=== PATIENT | female | born 1955 | race Caucasian/White ===

== ENCOUNTER → 2016-03-25 | Outpatient (REF) | payer BC ==
[2016-03-25 11:55] LABS: ALBUMIN/GLOBULIN RATIO 1.05 (1.00-1.93); ALKALINE PHOSPHATASE 115 U/L (45-117); ALT/SGPT 30 U/L (12-78); ANION GAP 11 MEQ/L (8-16); AST/SGOT 21 U/L (15-37); BILIRUBIN,TOTAL 0.3 MG/DL (0.2-1.0); BLOOD UREA NITROGEN 13 MG/DL (7-18); CALCIUM LEVEL 9.1 MG/DL (8.5-10.1); CARBON DIOXIDE LEVEL 28 MEQ/L (21-32); CHLORIDE LEVEL 101 MEQ/L (98-107); CHOLESTEROL LEVEL 294 MG/DL (<200); CREATININE FOR GFR 0.71 MG/DL (0.55-1.02); GLOMERULAR FILTRATION RATE > 60.0 (>51); GLUCOSE, FASTING 86 MG/DL (70-105); POTASSIUM SERUM 4.5 MEQ/L (3.5-5.1); SODIUM LEVEL 140 MEQ/L (136-145); TOTAL PROTEIN 7.8 GM/DL (6.4-8.2); TRIGLYCERIDES LEVEL 129 MG/DL (<150)
== END ==
LOC: M SFHCCLAY 08:24
PROVIDERS: ATTEND Family Medicine
DX: E78.2 Mixed hyperlipidemia (principal); E55.9 Vitamin D deficiency, unspecified

== ENCOUNTER → 2016-07-13 | Outpatient (REF) | payer BC ==
[2016-07-13 12:44] LABS: BASO % 0.7 % (0.0-1.0); EOS # 0.2 K/mm3 (0.0-0.50); EOS % 3.7 % (0.0-3.0); LARGE UNSTAINED CELL # 0.1 K/mm3 (0.0-0.4); LARGE UNSTAINED CELL % 2.2 % (0.0-4.0); LYMPH # 1.7 K/mm3 (1.5-4.5); LYMPH % 30.2 % (24.0-44.0); MEAN CORPUSCULAR HEMOGLOBIN 31.4 pg (27.0-33.0); MEAN CORPUSCULAR HGB CONC 32.9 g/dl (32.0-36.5); MEAN CORPUSCULAR VOLUME 95.2 fl (80.0-96.0); MONO # 0.3 K/mm3 (0.0-0.8); MONO % 5.8 % (0.0-5.0); NEUTROPHILS % 57.4 % (36.0-66.0); PLATELET COUNT, AUTOMATED 307 k/mm3 (150-450); RED CELL DISTRIBUTION WIDTH 12.2 % (11.5-14.5); WHITE BLOOD COUNT 5.3 K/mm3 (4.0-10.0)
[2016-07-13 13:14] LABS: ALBUMIN 3.8 GM/DL (3.2-5.2); ALBUMIN/GLOBULIN RATIO 1.09 (1.00-1.93); ALKALINE PHOSPHATASE 106 U/L (45-117); ALT/SGPT 28 U/L (12-78); AMYLASE 72 U/L (25-115); ANION GAP 9 MEQ/L (8-16); AST/SGOT 21 U/L (15-37); BILIRUBIN,TOTAL 0.3 MG/DL (0.2-1.0); BLOOD UREA NITROGEN 10 MG/DL (7-18); CARBON DIOXIDE LEVEL 28 MEQ/L (21-32); CHLORIDE LEVEL 102 MEQ/L (98-107); CREATININE FOR GFR 0.63 MG/DL (0.55-1.02); GLOMERULAR FILTRATION RATE > 60.0 (>51); GLUCOSE, FASTING 90 MG/DL (70-105); POTASSIUM SERUM 4.5 MEQ/L (3.5-5.1); SODIUM LEVEL 139 MEQ/L (136-145); TOTAL PROTEIN 7.3 GM/DL (6.4-8.2)
== END ==
LOC: M SFHCCLAY 08:43
PROVIDERS: ATTEND Family Medicine
DX: R10.9 Unspecified abdominal pain (principal)

== ENCOUNTER → 2016-10-12 | Outpatient (CLI) | payer BC ==
--- NOTE | 2016-10-13 02:36 | REP ---
Clinical: Pain. Technique: Internal rotation, external rotation, and Y view of the right shoulder. Findings: Cortical irregularity and spurring at the acromioclavicular joint is appreciated. The glenohumeral joint appears intact and normal. Subacromial space is normal. No significant periarticular calcifications are appreciated. Surrounding soft tissues are unremarkable. Impression: Mild degenerative changes at the acromioclavicular joint suggested. Signed by Selvin Silva MD 10/13/2016 02:28 A
== END ==
LOC: M CLY 13:54
PROVIDERS: ATTEND Family Medicine
DX: M19.011 Primary osteoarthritis, right shoulder (principal); M25.511 Pain in right shoulder

== ENCOUNTER → 2017-03-24 | Outpatient (REF) | payer BC ==
[2017-03-24 12:05] LABS: BASO # 0.1 10^3/uL (0.0-0.2); BASO % 0.9 % (0.0-1.0); EOS # 0.1 10^3/uL (0.0-0.50); EOS % 1.7 % (0.0-3.0); HEMATOCRIT 40.1 % (36.0-47.0); HEMOGLOBIN 13.2 g/dl (12.0-16.0); IMMATURE GRANULOCYTE % 0.3 % (0-0); LYMPH # 1.4 10^3/uL (1.5-4.5); LYMPH % 20.1 % (24.0-44.0); MEAN CORPUSCULAR HEMOGLOBIN 31.3 pg (27.0-33.0); MEAN CORPUSCULAR HGB CONC 32.9 g/dl (32.0-36.5); MONO # 0.5 10^3/uL (0.0-0.8); MONO % 7.3 % (0.0-5.0); NEUTROPHILS # 4.9 10^3/uL (1.8-7.7); NEUTROPHILS % 69.7 % (36.0-66.0); PLATELET COUNT, AUTOMATED 309 10^3/uL (150-450); RED BLOOD COUNT 4.22 10^6/uL (4.00-5.40)
[2017-03-24 12:35] LABS: ALBUMIN 3.7 GM/DL (3.2-5.2); ALBUMIN/GLOBULIN RATIO 0.95 (1.00-1.93); ALKALINE PHOSPHATASE 112 U/L (45-117); ALT/SGPT 28 U/L (12-78); ANION GAP 5 MEQ/L (8-16); AST/SGOT 19 U/L (7-37); BILIRUBIN,TOTAL 0.5 MG/DL (0.2-1.0); BLOOD UREA NITROGEN 12 MG/DL (7-18); CALCIUM LEVEL 9.2 MG/DL (8.5-10.1); CARBON DIOXIDE LEVEL 31 MEQ/L (21-32); CHLORIDE LEVEL 101 MEQ/L (98-107); CHOLESTEROL LEVEL 272 MG/DL (<200); CHOLESTEROL RISK RATIO 3.726 (<5); CREATININE FOR GFR 0.67 MG/DL (0.55-1.02); GLOMERULAR FILTRATION RATE > 60.0 (>51); GLUCOSE, FASTING 90 MG/DL (70-105); HDL CHOLESTEROL 73 MG/DL (>40); LDL CHOLESTEROL 160.6 MG/DL (<100); NON-HDL-C 199 MG/DL; POTASSIUM SERUM 4.5 MEQ/L (3.5-5.1); SODIUM LEVEL 137 MEQ/L (136-145); TOTAL PROTEIN 7.6 GM/DL (6.4-8.2); TRIGLYCERIDES LEVEL 192 MG/DL (<150)
[2017-03-28 14:11] LABS: VITAMIN D 1,25 DIHYDROXY 55.8 pg/mL (19.9-79.3)
== END ==
LOC: M SFHCCLAY 08:21
DX: E78.2 Mixed hyperlipidemia (principal); E55.9 Vitamin D deficiency, unspecified; R10.32 Left lower quadrant pain
CPT/HCPCS: 80053

== ENCOUNTER → 2017-09-26 | Outpatient (REF) | payer BC ==
[2017-09-26 12:33] LABS: ALBUMIN 3.8 GM/DL (3.2-5.2); ALBUMIN/GLOBULIN RATIO 1.19 (1.00-1.93); ALKALINE PHOSPHATASE 106 U/L (45-117); ALT/SGPT 41 U/L (12-78); ANION GAP 7 MEQ/L (8-16); AST/SGOT 24 U/L (7-37); BILIRUBIN,TOTAL 0.3 MG/DL (0.2-1.0); BLOOD UREA NITROGEN 11 MG/DL (7-18); CALCIUM LEVEL 8.8 MG/DL (8.5-10.1); CARBON DIOXIDE LEVEL 30 MEQ/L (21-32); CHLORIDE LEVEL 105 MEQ/L (98-107); CHOLESTEROL LEVEL 182 MG/DL (<200); CHOLESTEROL RISK RATIO 2.888 (<5); CREATININE FOR GFR 0.73 MG/DL (0.55-1.30); GLOMERULAR FILTRATION RATE > 60.0 (>51); GLUCOSE, FASTING 89 MG/DL (70-100); HDL CHOLESTEROL 63 MG/DL (>40); LDL CHOLESTEROL 84.8 MG/DL (<100); NON-HDL-C 119 MG/DL; POTASSIUM SERUM 4.6 MEQ/L (3.5-5.1); SODIUM LEVEL 142 MEQ/L (136-145); TRIGLYCERIDES LEVEL 171 MG/DL (<150)
== END ==
LOC: M SFHCCLAY 07:21
DX: E78.2 Mixed hyperlipidemia (principal)
CPT/HCPCS: 80053

== ENCOUNTER → 2018-03-28 | Outpatient (REF) | payer OTHER ==
[2018-03-28 20:54] LABS: ALBUMIN 3.8 GM/DL (3.2-5.2); ALT/SGPT 37 U/L (12-78); BILIRUBIN,TOTAL 0.3 MG/DL (0.2-1.0); BLOOD UREA NITROGEN 13 MG/DL (7-18); CALCIUM LEVEL 9.2 MG/DL (8.8-10.2); CARBON DIOXIDE LEVEL 30 MEQ/L (21-32); CHLORIDE LEVEL 104 MEQ/L (98-107); CHOLESTEROL LEVEL 162 MG/DL (<200); CHOLESTEROL RISK RATIO 2.314 (<5); CREATININE FOR GFR 0.58 MG/DL (0.55-1.30); GLOMERULAR FILTRATION RATE > 60.0 (>45); GLUCOSE, FASTING 86 MG/DL (70-100); HDL CHOLESTEROL 70 MG/DL (>40); LDL CHOLESTEROL 70 MG/DL (<100); NON-HDL-C 92 MG/DL; POTASSIUM SERUM 4.5 MEQ/L (3.5-5.1); SODIUM LEVEL 139 MEQ/L (136-145); TOTAL PROTEIN 7.3 GM/DL (6.4-8.2); TRIGLYCERIDES LEVEL 108 MG/DL (<150)
== END ==
LOC: M SFHCCLAY 09:42
PROVIDERS: ATTEND Family Medicine
DX: E78.2 Mixed hyperlipidemia (principal)

== ENCOUNTER → 2018-03-28 | Outpatient (CLI) | payer OTHER ==
--- NOTE | 2018-03-29 03:48 | REP ---
Clinical: Right shoulder pain. Technique: Internal rotation, external rotation, and Y view of the right shoulder. Findings: Mild age-related degenerative changes include subtle cortical irregularity at the acromioclavicular joint. The glenohumeral joint is intact and normal. Subacromial space is normal. No periarticular calcifications. Impression: Mild age-related degenerative changes at the acromioclavicular joint.
== END ==
LOC: M CLY 10:08
PROVIDERS: ATTEND Family Medicine
DX: M19.011 Primary osteoarthritis, right shoulder (principal)

== ENCOUNTER → 2019-02-19 | Outpatient (CLI) | payer OTHER ==
[~2019-02-19] MED LIST: BIOT1000 PO; HM V4000 PO; ROSU10TA6 PO; [UNRECOGNIZED DRUG - CODE] PO
--- NOTE | 2019-02-19 15:04 | REP ---
Clinical: Cough. Technique: PA and lateral. Comparison: None. Findings: Minimal linear fibroatelectatic changes at the left base require correlation with auscultation. No further consolidation. No effusion. No pneumothorax. Mediastinum and cardiac silhouette normal. Skeletal structures intact. Impression: Minimal linear fibroatelectatic changes at the left base require correlation with auscultation. Electronically Signed by Selvin Silva MD 02/19/2019 02:56 P
== END ==
LOC: M CLY 14:32
PROVIDERS: ATTEND Family Medicine
DX: R91.8 Other nonspecific abnormal finding of lung field (principal)

== ENCOUNTER 2019-03-29 08:21 | Day surgery (SDC) | payer OTHER ==
[~2019-03-29] VITALS: Ht 157.5 cm; Wt 92.5 kg
[~2019-03-29 08:21] MED LIST changes: +LIDOCAINE 1% MDV 20ML VIAL SQ PRN; +LR 1,000 ML IV ONE; +ceFAZolin SOD 2 GM in IV 1 EA IV ONE
[2019-03-29] MEDS ORDERED: dexameTHASONE 10 MG/1 ML VIAL PRES.FREE (J1100) ONE (08:22)
[2019-03-29] MEDS ORDERED: LIDOCAINE 1% MDV 20ML VIAL ONE (08:22)
[2019-03-29] MEDS ORDERED: VITA250T4 PO (09:07)
[2019-03-29] MEDS ORDERED: ONDANSETRON 4MG/2ML VIAL (J2405) As Ordered ONE ×2 (09:33→15:55)
[2019-03-29] MEDS ORDERED: LIDOCAINE 2% INJ 100 MG/5 ML SDV (FOR ANES.) As Ordered ONE (09:33)
[2019-03-29] MEDS ORDERED: ROCURONIUM BROMIDE 50 MG/5 ML VIAL As Ordered ONE (09:33)
[2019-03-29] MEDS ORDERED: ACETAMINOPHEN 1000MG 100ML IV BTL (OFIRMEV) (J0131 PER 10MG) As Ordered ONE (09:33)
[2019-03-29] MEDS ORDERED: dexameTHASONE 4 MG/ML 1ML VIAL (J1100) As Ordered ONE (09:33)
[2019-03-29] MEDS ORDERED: propofoL 200 MG/20 ML VIAL As Ordered ONE (09:33)
[2019-03-29] MEDS ORDERED: KETOROLAC 60 MG/2 ML VIAL (J1885) As Ordered ONE (09:33)
[2019-03-29] MEDS ORDERED: fentaNYL 100 MCG/2 ML INJECTION (J3010) As Ordered ONE ×4 (09:34→15:55)
[2019-03-29] MEDS ORDERED: MIDAZOLAM INJ 2 MG/2 ML VIAL (J2250) As Ordered ONE ×2 (09:34→11:50)
[2019-03-29] MEDS ORDERED: SUGAMMADEX SODIUM 500 MG/5 ML VIAL (BRIDION) As Ordered ONE (13:33)
[2019-03-29] MEDS ORDERED: oxyCODONE 5MG TAB As Ordered ONE ×2 (15:37→15:55)
[2019-03-29] MEDS: oxyCODONE 5MG TAB PO PRN ×2 (15:40→16:10)
[2019-03-29] MEDS: fentaNYL 100 MCG/2 ML INJECTION (J3010) IV PRN ×4 (15:55→16:10)
[2019-03-29] MEDS ORDERED: ONDANSETRON 4MG/2ML VIAL (J2405) IV PRN (16:00)
[2019-03-29] MEDS ORDERED: LR 1,000 ML IV SCH (16:00)
--- NOTE | 2019-03-29 18:33 | REP ---
Left great toe series: Five views. History: Intraoperative imaging. Fluoroscopic spot films. 45 seconds of fluoroscopy time is reported. Findings: A sequence of five last image hold fluoroscopically obtained spot radiographs document operative arthrodesis of the first MTP joint. Electronically Signed by Jonny Quigley MD 03/29/2019 06:25 P
[2019-03-29 18:50] VITALS: BP 131/72
--- NOTE | 2019-03-30 11:21 | RO ---
DATE OF PROCEDURE: 03/29/2019 PREOPERATIVE DIAGNOSIS: Left hallux rigidus and hallux interphalangeus. POSTOPERATIVE DIAGNOSIS: Left hallux rigidus and hallux interphalangeus with small bunion deformity. PROCEDURE: 1. Left first metatarsal phalangeal joint fusion. 2. Calcaneal bone graft. 3. Use of the mini C-arm. SURGEON: Suma Rivas MD CUSTOMER SERVICE AGENT: TK Lopez ANESTHESIA: General endotracheal with popliteal nerve block. ESTIMATED BLOOD LOSS: 25 mL. COMPLICATIONS: None. CONDITION: Stable to recovery. IMPLANTS: Arthrex first MTP plate and QuickFix 3 mm screw. INDICATIONS: Atiya Phillips is a 63-year-old female who has had longstanding pain and deformity due to left hallux rigidus. She has failed conservative measures. The risks and benefits of the surgery were discussed with the patient in detail and include, but are not limited to, infection, damage to nerves and blood vessels, need for additional procedures. Informed consent was obtained in the office. PROCEDURE: The patient was met in the preoperative holding area where her left lower extremity was marked as the correct operative site. She underwent a nerve block by the anesthesia team. She was then taken to the operating room and placed in the supine position on the operating room table. Bony prominences were well padded. A well padded tourniquet was placed on the left upper thigh. She was prepped and draped in the normal sterile fashion. Antibiotics were given within 60 minutes prior to incision. An official time out was held where the correct patient, operative side and operative procedure were verified. Following this, the leg was exsanguinated and the tourniquet was inflated to 275 mmHg. An incision was made directly over the first MTP joint. The extensor hallucis longus (EHL) tendon was retracted laterally. The capsule was incised. 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 There was very little cartilage left, mainly in the plantar aspect on both sides of the joint. This was removed with a series of curettes. Copious irrigation was performed. I then drilled subchondral bone using a 0.062 K-wire on both sides of the joint. After the joint was prepared, my attention was then turned laterally. Using the small incision, laterally over the tuberosity, I then used a snap and freer to dissect down to the bone with taking care to avoid the sural nerve and peroneal tendons. I then used the 4.0 drill sleeve to extract calcaneal bone graft. Some of this was placed into the joint. I then pinned the joint in place in the appropriate amount of valgus and dorsiflexion. Radiographs were used to confirm on AP, lateral and oblique views position of the toe. It was found to be satisfactory. I then placed a 3.0 partially threaded Arthrex lag screw across the joint. This gave good compression. Next, I selected an Arthrex low profile first MTP plate. It was placed dorsally across the joint and the position of the plate was confirmed radiographically. I then secured the plate distally with locking screws and proximally with locking screws as well. I did attempt to place an eccentric screw, however was not getting bite so this was removed. X-rays were performed in AP, lateral and oblique view. Position of the toe and hardware placement were found to be satisfactory. There was also good compression across the joint. Following this, a bur was used to drill two small holes on either side of the plate. The remaining bone graft was placed here, which was in the region of the joint. Following this, the capsule was closed with #2-0 Vicryl. Copious irrigation was then performed. Subcutaneous tissue was closed using #3-0 Vicryl and skin was closed using #3-0 nylon. A well padded dressing was applied and the patient was extubated and transferred to the recovery room in stable condition. PLAN: Patient will be non-weightbearing in the left lower extremity. She will be on aspirin for deep vein thrombosis (DVT) prophylaxis. I will see her back in two weeks for suture removal and placement into a boot.
== END 2019-03-29 18:57 | disposition home or self-care (01) ==
LOC: M SDC 08:21
PROVIDERS: ATTEND Orthopaedic Surgery
DX: M20.22 Hallux rigidus, left foot (principal); E55.9 Vitamin D deficiency, unspecified; E78.5 Hyperlipidemia, unspecified; Z88.1 Allergy status to other antibiotic agents; Z79.899 Other long term (current) drug therapy; Z87.891 Personal history of nicotine dependence
CPT/HCPCS: 20900; 28750; 76000; C1713; C1762; J0131; J0690; J1100; J2250; J2405; J3010

== ENCOUNTER → 2019-04-17 | Outpatient (REF) | payer OTHER ==
[~2019-04-17] MED LIST changes: -LIDOCAINE 1% MDV 20ML VIAL SQ PRN; -LR 1,000 ML IV ONE; +VITA250T4 PO; -ceFAZolin SOD 2 GM in IV 1 EA IV ONE
[2019-04-17 18:39] LABS: ALT/SGPT 36 U/L (12-78); BILIRUBIN,TOTAL 0.3 MG/DL (0.2-1.0); BLOOD UREA NITROGEN 8 MG/DL (7-18); CALCIUM LEVEL 9.8 MG/DL (8.8-10.2); CARBON DIOXIDE LEVEL 29 MEQ/L (21-32); CHLORIDE LEVEL 104 MEQ/L (98-107); CHOLESTEROL LEVEL 245 MG/DL (<200); CHOLESTEROL RISK RATIO 3.223 (<5); CREATININE FOR GFR 0.69 MG/DL (0.55-1.30); GLOMERULAR FILTRATION RATE > 60.0 (>45); GLUCOSE, FASTING 85 MG/DL (70-100); HDL CHOLESTEROL 76 MG/DL (>40); LDL CHOLESTEROL 137 MG/DL (<100); NON-HDL-C 169 MG/DL; POTASSIUM SERUM 4.6 MEQ/L (3.5-5.1); SODIUM LEVEL 139 MEQ/L (136-145); TOTAL PROTEIN 7.5 GM/DL (6.4-8.2); TRIGLYCERIDES LEVEL 158 MG/DL (<150)
== END ==
LOC: M SFHCCLAY 10:48
PROVIDERS: ATTEND Family Medicine
DX: E78.2 Mixed hyperlipidemia (principal)

== ENCOUNTER → 2020-01-09 | Outpatient (CLI) | payer OTHER ==
--- NOTE | 2020-01-11 13:15 | SLEEPHOME ---
DATE: 01/09/2020 ORDERED BY: Dr. Campbell [facility] home sleep testing was performed due to concern for the obstructive sleep apnea syndrome in this patient with a history of snoring. For testing, a nocturnal T3 respiratory monitoring device was used. Continuous record was made of pulse, oxygen saturation, air flow, chest and abdominal strain, and body position. Nine hours and 59 minutes of data were reviewed. There were 7 hours and 11 minutes marked as time in bed. During the interval marked time in bed, there were 55 respiratory events identified of 10 seconds in duration or greater for a respiratory event index of 7.6. The events were primarily obstructive. Baseline pulse rate 66. Pulse rate ranged 38 to 93. Baseline saturation was 93%. Saturations fell to 88%. Testing was performed in both the supine and nonsupine positions. IMPRESSION: Abnormal home sleep testing with repetitive respiratory events and oxygen desaturations to 88% with a respiratory event index of 7.6 is consistent with the obstructive sleep apnea syndrome. RECOMMENDATION: The patient should be encouraged to undergo a formal sleep evaluation. [facility]
== END ==
LOC: M SLEEP HO 01-08 11:25
PROVIDERS: ATTEND Family Medicine
DX: R06.83 Snoring (principal)

== ENCOUNTER → 2020-03-28 | Outpatient (CLI) | payer OTHER | LOC: M LABSMTC 12:50 | PROVIDERS: ATTEND Family Medicine | DX: Z20.822 Contact with and (suspected) exposure to COVID-19 (principal) ==

== ENCOUNTER → 2020-04-18 | Outpatient (REF) | payer OTHER ==
[2020-04-18 16:34] LABS: ALBUMIN 3.7 GM/DL (3.2-5.2); ALT/SGPT 33 U/L (12-78); BILIRUBIN,TOTAL 0.3 MG/DL (0.2-1.0); BLOOD UREA NITROGEN 10 MG/DL (7-18); CALCIUM LEVEL 9.7 MG/DL (8.8-10.2); CARBON DIOXIDE LEVEL 33 MEQ/L (21-32); CHLORIDE LEVEL 101 MEQ/L (98-107); CHOLESTEROL LEVEL 227 MG/DL (<200); CHOLESTEROL RISK RATIO 3.026 (<5); CREATININE FOR GFR 0.81 MG/DL (0.55-1.30); GLOMERULAR FILTRATION RATE > 60.0 (>45); GLUCOSE, FASTING 107 MG/DL (70-100); HDL CHOLESTEROL 75 MG/DL (>40); LDL CHOLESTEROL 118 MG/DL (<100); NON-HDL-C 152 MG/DL; POTASSIUM SERUM 5.1 MEQ/L (3.5-5.1); SODIUM LEVEL 139 MEQ/L (136-145); TRIGLYCERIDES LEVEL 168 MG/DL (<150)
== END ==
LOC: M SFHCCLAY 09:34
PROVIDERS: ATTEND Family Medicine
DX: E78.2 Mixed hyperlipidemia (principal)

== ENCOUNTER 2020-08-05 12:49 | Emergency (ER) | payer OTHER ==
[~2020-08-05] VITALS: Ht 157.5 cm; Wt 93.4 kg
[2020-08-05] MEDS ORDERED: PERCOCET 5MG/325MG TAB PO ONE (13:30)
--- NOTE | 2020-08-05 13:31 | REP ---
INDICATION: injury COMPARISON: None. TECHNIQUE: Four views left wrist. FINDINGS: There is a comminuted intra-articular fracture of the distal end of the radius with significant dorsal displacement and angulation. Ulnar styloid fracture also demonstrates significant displacement. IMPRESSION: Comminuted intra-articular fracture distal end of radius with significant dorsal displacement and angulation. Displaced ulnar styloid fracture. <Electronically signed by Darius Batres > 08/05/20 [id number]
[2020-08-05] MEDS ORDERED: LIDOCAINE 1% MDV 20ML VIAL As Ordered ONE (14:48)
[2020-08-05] MEDS ORDERED: LIDOCAINE 1% MDV 20ML VIAL INJ ONE (15:00)
[2020-08-05] MEDS ORDERED: HYDR-3713 PO (16:11)
--- NOTE | 2020-08-05 16:29 | REP ---
INDICATION: post reduction COMPARISON: Left wrist series earlier today at 1:02 p.m. TECHNIQUE: Four views left wrist. FINDINGS: Comminuted fracture of distal radius is again visualized. With there is improved posterior displacement. Ulnar styloid fracture is again noted with improved displacement. There is an overlying splint. IMPRESSION: Fractures of distal radius and ulna with improved displacement. <Electronically signed by Darius Batres > 08/05/20 [id number]
--- NOTE | 2020-08-05 16:33 | REP ---
INDICATION: reduction. COMPARISON: Radiographs earlier today. TECHNIQUE: Two C-arm views left wrist. FINDINGS: There is a comminuted fracture of the distal radius with improved alignment. There is fracture of the ulnar styloid. IMPRESSION: 63 seconds fluoroscopy time utilized. <Electronically signed by Darius Batres > 08/05/20 [id number]
--- NOTE | 2020-08-05 16:33 | REP ---
INDICATION: post reduction of comminuted fracture. COMPARISON: Radiographs today. TECHNIQUE: Axial CT performed with sagittal and coronal reconstruction images. FINDINGS: There is a comminuted fracture of the distal radius which is intra-articular. There is moderate posterior displacement. The fracture is impacted. There is also mild lateral displacement. There is a fracture of the ulnar styloid with lateral displacement. There is no other evidence of acute fracture or dislocation. There is mild surrounding soft tissue edema. IMPRESSION: Distal radial and ulnar fractures as discussed above. <Electronically signed by Darius Batres > 08/05/20 [id number]
[2020-08-05 17:38] VITALS: BP 133/73
--- NOTE | 2020-08-06 16:20 | CR ---
CONSULTATION DATE: 08/05/2020 REASON FOR CONSULTATION: Left wrist distal radius fracture. CHIEF COMPLAINT: Left wrist pain. HISTORY OF PRESENT ILLNESS: The patient is a 64-year-old female who was carrying a heavy load; she fell down onto her left upper extremity, and noted the onset of pain in her wrist and obvious deformity. She presented to the emergency department for evaluation. She was diagnosed with a left displaced distal radius fracture. Orthopedics was called for evaluation, reduction, and immobilization. She has no other complaint. PAST MEDICAL AND SURGICAL HISTORY: Non-contributory to this case. SOCIAL HISTORY: She lives with her up by the [place]. REVIEW OF SYSTEMS: 10-point review of systems was conducted and all were negative except for as documented in the HPI. PHYSICAL EXAMINATION: GENERAL: She is well-developed and well-nourished, in no acute distress. NEUROLOGIC: Alert and oriented x4. PSYCHIATRIC: Normal mood and affect. HEART: Regular rate and rhythm. RESPIRATORY: Nonlabored breathing. ABDOMEN: Nontender and nondistended. SKIN: Intact. No ecchymosis or swelling except for the left upper extremity. MUSCULOSKELETAL: Focused exam of the left upper extremity demonstrates obvious deformity of the left wrist. There are no breaks in the skin. She is tender to palpation over the distal radius and ulna. She has limited range of motion secondary to pain. She otherwise has sensory intact to light touch in the radial, ulnar, and median nerves. Motor intact AIN, PIN, medial, and ulnar nerves. IMAGING DATA: Review of radiographs of the left wrist demonstrate an apex volar distal radius fracture with severe displacement, as well as ulnar styloid fracture. ASSESSMENT: This is a 64-year-old female with left dorsally displaced apex volar angulated distal radius fracture. I counseled the patient on the nature of the condition. I recommended a closed reduction and splint immobilization. PROCEDURE PERFORMED: After consent was obtained, the patient underwent a hematoma block and was placed into hanging traction for approximately 10 minutes with finger traps. Closed reduction was performed and a sugar-tong splint was applied. Post-reduction x-rays and CT scan were obtained. The post-reduction films demonstrated improvement in the volar tilt; however, there was still dorsal displacement. Another CT scan demonstrates severely unstable fracture pattern. PLAN: The patient was counseled on this and recommended follow-up with a hand surgeon in [place]. Given the unstable nature of this fracture pattern, I suspect that she will likely need open reduction internal fixation. She will plan to follow-up with the hand surgeons in [place]. Please note after reduction, she was able to move her fingers much easier and she had much improvement in her pain. The patient will follow-up with [place] hand surgery. All questions were answered and no further questions from the patient.
== END 2020-08-05 17:45 | disposition home or self-care (01) ==
LOC: M ED 12:49
DX: S52.352A Displaced comminuted fracture of shaft of radius, left arm, initial encounter for closed fracture (principal); S52.612A Displaced fracture of left ulna styloid process, initial encounter for closed fracture; W19.XXXA Unspecified fall, initial encounter; Y92.9 Unspecified place or not applicable; Y93.89 Activity, other specified; Y99.9 Unspecified external cause status; Z79.890 Hormone replacement therapy; Z79.899 Other long term (current) drug therapy; Z88.1 Allergy status to other antibiotic agents

== ENCOUNTER → 2020-08-08 | Outpatient (REF) | payer OTHER ==
[~2020-08-08] MED LIST changes: +HYDR-3713 PO
[2020-08-08 11:44] LABS: BASO # 0.1 10^3/uL (0.0-0.2); BASO % 0.7 % (0.0-1.0); EOS # 0.1 10^3/uL (0.0-0.5); EOS % 2.1 % (0.0-3.0); HEMATOCRIT 38.7 % (36.0-47.0); HEMOGLOBIN 12.4 g/dl (12.0-15.5); LYMPH # 1.7 10^3/uL (1.5-5.0); LYMPH % 24.7 % (24.0-44.0); MEAN CORPUSCULAR HEMOGLOBIN 31.2 pg (27.0-33.0); MEAN CORPUSCULAR VOLUME 97.5 fl (80.0-96.0); MONO # 0.6 10^3/uL (0.0-0.8); MONO % 8.1 % (2.0-8.0); NEUTROPHILS # 4.4 10^3/uL (1.5-8.5); NEUTROPHILS % 64.1 % (36.0-66.0); PLATELET COUNT, AUTOMATED 307 10^3/uL (150-450); RED BLOOD COUNT 3.97 10^6/uL (4.00-5.40); WHITE BLOOD COUNT 6.8 10^3/uL (4.0-10.0)
[2020-08-08 12:18] LABS: BLOOD UREA NITROGEN 13 MG/DL (7-18); CALCIUM LEVEL 8.9 MG/DL (8.8-10.2); CARBON DIOXIDE LEVEL 30 MEQ/L (21-32); CHLORIDE LEVEL 103 MEQ/L (98-107); CREATININE FOR GFR 0.59 MG/DL (0.55-1.30); GLOMERULAR FILTRATION RATE > 60.0 (>45); GLUCOSE, FASTING 88 MG/DL (70-100); POTASSIUM SERUM 4.4 MEQ/L (3.5-5.1); SODIUM LEVEL 138 MEQ/L (136-145)
== END ==
LOC: M SFHCCLAY 07:09
PROVIDERS: ATTEND Family Medicine
DX: Z01.818 Encounter for other preprocedural examination (principal); E78.2 Mixed hyperlipidemia

== ENCOUNTER → 2021-04-20 | Outpatient (REF) | payer OTHER ==
[2021-04-20 12:07] LABS: ALBUMIN 3.8 GM/DL (3.2-5.2); ALT/SGPT 34 U/L (12-78); BILIRUBIN,TOTAL 0.2 MG/DL (0.2-1.0); BLOOD UREA NITROGEN 12 MG/DL (7-18); CALCIUM LEVEL 9.4 MG/DL (8.8-10.2); CARBON DIOXIDE LEVEL 30 MEQ/L (21-32); CHLORIDE LEVEL 102 MEQ/L (98-107); CHOLESTEROL LEVEL 208 MG/DL (<200); CHOLESTEROL RISK RATIO 2.701 (<5); CREATININE FOR GFR 0.68 MG/DL (0.55-1.30); GLOMERULAR FILTRATION RATE > 60.0 (>45); GLUCOSE, FASTING 107 MG/DL (70-100); HDL CHOLESTEROL 77 MG/DL (>40); LDL CHOLESTEROL 109 MG/DL (<100); NON-HDL-C 131 MG/DL; POTASSIUM SERUM 5.3 MEQ/L (3.5-5.1); SODIUM LEVEL 138 MEQ/L (136-145); TOTAL PROTEIN 7.7 GM/DL (6.4-8.2); TRIGLYCERIDES LEVEL 111 MG/DL (<150)
== END ==
LOC: M SFHCCLAY 08:54
PROVIDERS: ATTEND Family Medicine
DX: Z00.00 Encounter for general adult medical examination without abnormal findings (principal); E78.2 Mixed hyperlipidemia

== ENCOUNTER → 2022-04-22 | Outpatient (REF) | payer OTHER ==
[2022-04-22 12:47] LABS: ALBUMIN 3.8 G/DL (3.2-5.2); ALKALINE PHOSPHATASE 110 U/L (46-116); ALT/SGPT 25 U/L (7.0-40); AST/SGOT 22 U/L (<34); BILIRUBIN,TOTAL 0.4 MG/DL (0.3-1.2); BLOOD UREA NITROGEN 12 MG/DL (9-23); CALCIUM LEVEL 9.3 MG/DL (8.3-10.6); CARBON DIOXIDE LEVEL 30 MMOL/L (20-31); CHLORIDE LEVEL 103 MMOL/L (98-107); CHOLESTEROL LEVEL 212 MG/DL (<200); CHOLESTEROL RISK RATIO 2.66 (<5); CREATININE FOR GFR 0.67 MG/DL (0.55-1.30); GLOMERULAR FILTRATION RATE > 60.0 (>45); GLUCOSE, FASTING 88 MG/DL (74-106); HDL CHOLESTEROL 79.5 MG/DL (>40); LDL CHOLESTEROL 112.1 MG/DL (<100); NON-HDL-C 133 MG/DL; SODIUM LEVEL 138 MMOL/L (136-145); TOTAL PROTEIN 7.3 G/DL (5.7-8.2); TRIGLYCERIDES LEVEL 102 MG/DL (<150)
== END ==
LOC: M SFHCCLAY 09:19
PROVIDERS: ATTEND Family Medicine
DX: E78.2 Mixed hyperlipidemia (principal)

== ENCOUNTER → 2023-04-22 | Outpatient (REF) | payer OTHER ==
[2023-04-22 12:23] LABS: ALBUMIN 3.6 G/DL (3.2-5.2); ALKALINE PHOSPHATASE 94 U/L (46-116); ALT/SGPT 33 U/L (7.0-40); AST/SGOT 21 U/L (<34); BILIRUBIN,TOTAL 0.5 MG/DL (0.3-1.2); BLOOD UREA NITROGEN 11 MG/DL (9-23); CALCIUM LEVEL 9.8 MG/DL (8.3-10.6); CARBON DIOXIDE LEVEL 30 MMOL/L (20-31); CHLORIDE LEVEL 103 MMOL/L (98-107); CHOLESTEROL LEVEL 164 MG/DL (<200); CHOLESTEROL RISK RATIO 2.31 (<5); CREATININE FOR GFR 0.61 MG/DL (0.55-1.30); GLOMERULAR FILTRATION RATE > 60.0 (>45); GLUCOSE, FASTING 92 MG/DL (74-106); HDL CHOLESTEROL 70.9 MG/DL (>40); LDL CHOLESTEROL 79.5 MG/DL (<100); NON-HDL-C 93.1 MG/DL; POTASSIUM SERUM 4.7 MMOL/L (3.5-5.1); SODIUM LEVEL 138 MMOL/L (136-145); TOTAL PROTEIN 7.1 G/DL (5.7-8.2); TRIGLYCERIDES LEVEL 68 MG/DL (<150)
== END ==
LOC: M SFHCCLAY 09:22
PROVIDERS: ATTEND Family Medicine
DX: E78.2 Mixed hyperlipidemia (principal)

== ENCOUNTER → 2023-07-26 | Outpatient (CLI) | payer OTHER ==
[~2023-07-26] MED LIST changes: -ROSU10TA6 PO; +ROSU10TA61 PO; +VITA250T27 PO; -VITA250T4 PO
== END ==
LOC: M CLY 08:10
PROVIDERS: ATTEND Physician Assistant
DX: K59.00 Constipation, unspecified (principal)

== ENCOUNTER → 2023-08-09 | Outpatient (CLI) | payer OTHER | LOC: M CLY 08:39 | PROVIDERS: ATTEND Family Medicine | DX: K59.00 Constipation, unspecified (principal) ==

== ENCOUNTER → 2024-01-02 | Outpatient (CLI) | payer OTHER | LOC: M CLY 13:37 | PROVIDERS: ATTEND Family Medicine | DX: M54.50 Low back pain, unspecified (principal) ==

== ENCOUNTER → 2024-04-23 | Outpatient (REF) | payer MEDICARE ==
[2024-04-23 13:48] LABS: HEMATOCRIT 39.4 % (36.0-47.0); MEAN CORPUSCULAR HEMOGLOBIN 31.9 pg (27.0-33.0); MEAN CORPUSCULAR VOLUME 96.8 fl (80.0-96.0); PLATELET COUNT, AUTOMATED 287 10^3/uL (150-450); RED BLOOD COUNT 4.07 10^6/uL (4.00-5.40); WHITE BLOOD COUNT 6.2 10^3/uL (4.0-10.0)
[2024-04-23 14:15] LABS: ALBUMIN 3.7 G/DL (3.2-5.2); ALKALINE PHOSPHATASE 100 U/L (35-104); ALT/SGPT 21 U/L (7.0-40); AST/SGOT 21 U/L (<34); BILIRUBIN,TOTAL 0.4 MG/DL (0.3-1.2); BLOOD UREA NITROGEN 14 MG/DL (9-23); CALCIUM LEVEL 9.6 MG/DL (8.3-10.6); CARBON DIOXIDE LEVEL 30 MMOL/L (20-31); CHLORIDE LEVEL 102 MMOL/L (98-107); CHOLESTEROL LEVEL 197 MG/DL (<200); CHOLESTEROL RISK RATIO 2.64 (<5); CREATININE FOR GFR 0.71 MG/DL (0.55-1.30); GLOMERULAR FILTRATION RATE > 60.0 (>45); GLUCOSE, FASTING 82 MG/DL (74-106); HDL CHOLESTEROL 74.4 MG/DL (>40); LDL CHOLESTEROL 98.8 MG/DL (<100); NON-HDL-C 122.6 MG/DL; POTASSIUM SERUM 5.4 MMOL/L (3.5-5.1); SODIUM LEVEL 140 MMOL/L (136-145); TOTAL PROTEIN 7.1 G/DL (5.7-8.2); TRIGLYCERIDES LEVEL 119 MG/DL (<150)
== END ==
LOC: M SFHCCLAY 09:04
PROVIDERS: ATTEND Family Medicine
DX: Z00.00 Encounter for general adult medical examination without abnormal findings (principal); E78.2 Mixed hyperlipidemia